=== PATIENT | male | born 1970 | race Caucasian/White ===

== ENCOUNTER 2018-05-03 14:37 | Emergency (ER) | payer OTHER, BC ==
[~2018-05-03] VITALS: Ht 188 cm; Wt 91.9 kg
[2018-05-03] MEDS ORDERED: MOTRIN800 MG PO (17:24)
[2018-05-03] MEDS ORDERED: PREDNISONE20 MG PO (17:24)
[2018-05-03] MEDS ORDERED: FLEXERIL10 MG PO (17:24)
[2018-05-03 18:05] VITALS: BP 120/82
== END 2018-05-03 18:06 | disposition home or self-care (01) ==
LOC: EME 14:37
DX: M54.2 Cervicalgia (principal); V49.40XA Driver injured in collision with unspecified motor vehicles in traffic accident, initial encounter; Y92.410 Unspecified street and highway as the place of occurrence of the external cause; Z88.0 Allergy status to penicillin
CPT/HCPCS: 72040; 99281; 99283; J1885; J7512